=== PATIENT | male | born 1970 | race Caucasian/White ===

== ENCOUNTER 2020-12-31 16:22 | Emergency (ER) | payer BC, SELFPAY ==
[2020-12-31 16:31] VITALS: BP 157/98; PULSE 85; RESP 18; TEMP 36.9; O2SAT 96; BMI 32.5
[2020-12-31 17:27] VITALS: BP 195/94; PULSE 96; RESP 20; TEMP 36.6; O2SAT 98; BMI 35.2
--- NOTE | 2020-12-31 17:56 | HMH.EDUTC ---
[facility] [place] Disposition Clinical Impression: Laceration of left leg Qualifiers: Encounter type: initial encounter Qualified Code(s): S81.812A - Laceration without foreign body, left lower leg, initial encounter Diabetes Qualifiers: Diabetes mellitus type: type 2 Diabetes mellitus skilled nursing insulin use: with skilled nursing use Diabetes mellitus complication status: with other specified complication Qualified Code(s): E11.69 - Type 2 diabetes mellitus with other specified complication Disposition: Home, Self-Care Condition on Discharge: Good Instructions: How to Care for a Laceration After Repair, DI for Laceration Repair, DI for Laceration Repair -- Simple Additional Instructions: Keep the wound clean and dry. Keep a dressing on it if you are going to be getting it dirty. Watch the for signs of infection, such as redness, swelling, drainage, fever. etc. Take tylenol or ibuprofen for pain. Follow up with your regular doctor in 48 hours for a recheck of your wound. I worry about it because you are a diabetic and it is on your lower leg. Return in 7 to 10 days to have the sutures removed. GO TO THE ER FOR ANY WORSENING SYMPTOMS OR CONCERNS. Prescriptions: cephALEXin [cephALEXin 500mg capsule] 500 mg PO Q6H 10 Days #40 cap Transmission Status: Received by [id number] Referrals: Thai Balderas [Primary Care Provider] - Time of Disposition: 18:54 Medical Decision Making - Medical Records Medical records reviewed: No: I reviewed the patient's medical records. - Shawn Inquiry Pt receiving controlled substance: No Vital Signs: 12/31/20 16:31 12/31/20 17:27 12/31/20 19:20 Temperature 98.5 F 97.9 F 98.3 F Temperature Source Oral Oral Pulse Rate 87 Pulse Rate [Left Radial] 85 96 H Respiratory Rate 18 20 20 Blood Pressure 181/96 H Blood Pressure [Left Arm] 157/98 H 195/94 H Blood Pressure Mean [Left Arm] 117 127 Blood Pressure Source [Left Arm] Automatic Cuff Blood Pressure Position [Left Arm] Sitting 02 Sat by Pulse Oximetry 96 98 Oxygen Delivery Method Room Air - Lab Data Lab Results 12/31/20 18:54: POC Glucose 116 H Orders (Tests/Meds): ED MEDICATIONS Discontinued Medications Generic Name Dose Route Start Last Admin Trade Name Freq PRN Reason Stop Dose Admin Tetanus/Reduced Diphtheria/Acell Pertussis 0.5 ml 12/31/20 17:39 12/31/20 19:16 Tet/Diphth/Pert-Adult 0.5ml Syringe IM 12/31/20 17:40 0.5 ml .ONCE ONE Administration [facility] [place] HPI - General Stated complaint: Ao Lt leg lac Time Seen by Provider: 12/31/20 17:56 Mode of Arrival: Ambulatory Source of Information: Patient Limitations: No Limitations Description of Symptoms (Recalled from Triage Doc. by RN): pt cut his L leg on the outside of the calf on a piece of glass. the muscle is visible to the eye. HEENT Symptoms (Recalled from RN notes): No Resp Symptoms (Recalled from RN notes): No Skin Symptoms (Recalled from RN notes): Yes (lac on the outside of the L calf) MS Symptoms (Recalled from RN notes): No Functional Status (Recalled from RN notes): na - History of Present Illness Provider Complaint: He states he was walking thru his house and he bumped his leg on a piece of glass. He recieved a laceration to the lateral aspect of his left lower leg. His tetanus immunization is not up to date. He is an insulin dependent diabetic. - Related Data Previous Rx's Medication Instructions Recorded cephALEXin [cephALEXin 500mg 500 mg PO Q6H 10 Days #40 cap 12/31/20 capsule] Allergies Allergy/AdvReac Type Severity Reaction Status Date / Time INGREDIENT: NO KNOWN - NO Allergy Unknown Uncoded 05/03/17 15:24 KNOWN DRUG ALLERGY - Worker's Comp Is this a Worker's Comp case?: No [facility] History - Hepatitis A Screen Drug use history?: No High risk sexual behaviors?: No History of sexually transmitted infection?: No Currently employed?: No Childcare worker?: No Do you have indo
[2020-12-31 19:03] LABS: POC Glucose,Bedside 116 (70-110)
[2020-12-31 19:20] VITALS: BP 181/96; PULSE 87; RESP 20; TEMP 36.8
== END 2020-12-31 19:28 | disposition home or self-care (01) ==
LOC: ER 16:42 → UTC 16:45
PROVIDERS: Emergency Provider Nurse Practitioner Family; PCP Pediatrics
DX: S81.812A Laceration without foreign body, left lower leg, initial encounter (principal); W25.XXXA Contact with sharp glass, initial encounter; Y92.019 Unspecified place in single-family (private) house as the place of occurrence of the external cause; E11.65 Type 2 diabetes mellitus with hyperglycemia; Z79.4 Long term (current) use of insulin; Z23 Encounter for immunization
CPT/HCPCS: 12002; 82962; 90471; 90715; 99202; G0463